=== PATIENT | female | born 1995 | race Caucasian/White ===

== ENCOUNTER 2019-11-18 20:45 | Inpatient (IN) | payer OTHER ==
[2019-11-18 22:48] LABS: BASO % 0.4 % (0-2.0); EOS % 0.5 % (0-4.5); HEMATOCRIT 41.6 % (32.4-45.2); HEMOGLOBIN 14.4 GM/dL (10.7-15.3); LYMPH % 20.9 % (8-40); MCH 32.5 pg (25.7-33.7); MCHC 34.6 g/dl (32.0-36.0); MEAN CELL VOLUME 93.9 fl (80-96); MEAN PLT VOLUME 11.2 fl (7.5-11.1); MONO % 12.9 % (3.8-10.2); NEUT % 65.3 % (42.8-82.8); PLATELET COUNT 184 K/MM3 (134-434); RBC 4.43 M/mm3 (3.60-5.2); RDW 13.4 % (11.6-15.6)
[2019-11-18 23:02] LABS: INR 0.97 (0.83-1.09); PROTHROMBIN TIME (PATIENT) 11.5 SEC (9.7-13.0)
[2019-11-18 23:05] LABS: ACTIVATED PTT 30.2 SECONDS (25.2-36.5)
[2019-11-18] MEDS ORDERED: BUTORPHANOL TARTRATE 1 MG/ML VIAL IVPB ONE (23:11)
[2019-11-18] MEDS ORDERED: PROMETHAZINE HCL 25 MG/1 ML VIAL IVPUSH ONE (23:11)
[2019-11-18 23:15] LABS: BLOOD UREA NITROGEN 11.5 mg/dL (7-18); CALCIUM 9.3 mg/dL (8.5-10.1); CREATININE 0.6 mg/dL (0.55-1.3); POTASSIUM 4.2 mmol/L (3.5-5.1)
[2019-11-18] MEDS ORDERED: ELECTROLYTE-148 SOLN 1,000 ML IV SCH (23:15)
[2019-11-18 23:57] VITALS: BMI 32.3
--- NOTE | 2019-11-18 23:57 | HP ---
Past Medical History - Past Surgical History Hx Myomectomy: No Hx Transabdominal Cerclage: No Home Medications - Allergies Allergies/Adverse Reactions: Allergies Allergy/AdvReac Type Severity Reaction Status Date / Time No Known Allergies Allergy Verified 11/18/19 21:48 - Home Medications Home Medications: Ambulatory Orders Acetaminophen 650 mg PO 1XPACU 11/18/19 Vitamins (Sjr) - 1 tab PO DAILY 11/18/19 Physical Exam - Maternity Vital Signs: Vital Signs Temperature Pulse Rate 122 H 11/18/19 23:00 Respiratory Rate 11/18/19 23:00 Blood Pressure 136/68 11/18/19 23:00 O2 Sat by Pulse Oximetry (%) - Labs Lab Results: CBC, BMP 11/18/19 22:30 11/18/19 22:30
--- NOTE | 2019-11-19 00:14 | HP ---
Past Medical History - Primary Care Physician PCP:: Dolly Myers - Admission Chief Complaint: 24 yrs 39.6 weeks by dates & 39 weeks by sono onset LP since 6.00pM History of Present Illness: pnc at, 2 [facility] wt gain 25 lbs 01/24/19 panel : O Pos Hbsag neg, Rubella immune, Rpr not mentioned, Hiv neg, , Sickle neg, Cf screen neg , gc/ct neg, pap Non 16/18 Hr HPV pos , Hr 16 Hpv neg, Hr 18 Hpv neg 08/15/19 Quqntiferon neg Syphilis Reverse Algarythm neg, 1 hr gt 97 10/19/18 GBS neg gc/ct neg h/h 14.3/42.4, plt 218 Sonograms done by M 06/13/10 sono 16,3 wks Edc assigned 11/25/19 by sono f/u growth sono were done pt states she has h/o tachycardia , for which she was referred to [facility] , HOlra meter was done in last 1 month . 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 Weeks Gestation by Dates: 39.6 ...EDC by Dates: 11/19/19 ...EDC by Sono: 11/25/19 (39 weeks by sono ) Heme/Onc: No: Anemia Infectious Disease: No: AIDS, HIV, Tuberculosis Musculoskeletal: Yes: Other (h/o anxiety) Endocrine: No: Hyperthyroidism, Hypothyroidism - Past Surgical History Past Surgical History: Yes: None Hx Myomectomy: No Hx Transabdominal Cerclage: No - Alcohol/Substance Use Hx Alcohol Use: No History of Substance Use: reports: None Home Medications - Allergies Allergies/Adverse Reactions: Allergies Allergy/AdvReac Type Severity Reaction Status Date / Time No Known Allergies Allergy Verified 11/18/19 21:48 - Home Medications Home Medications: Ambulatory Orders Acetaminophen 650 mg PO 1XPACU 03/06/20 Vitamins (Sjr) - 1 tab PO DAILY 11/18/19 Physical Exam - Maternity Vital Signs: Vital Signs Temperature Pulse Rate 122 H 11/18/19 23:00 Respiratory Rate 20 11/18/19 23:00 Blood Pressure 136/68 11/18/19 23:00 O2 Sat by Pulse Oximetry (%) Selected Entries 11/18/19 21:48 Weight 200 lb Constitutional: Yes: Well Nourished, Obese Eyes: Yes: WNL HENT: Yes: WNL, Normocephalic Neck: Yes: WNL Cardiovascular: Yes: WNL, Regular Rate and Rhythm Lungs: Clear to auscultation Breast(s): Yes: WNL - Abdominal Exam/OB Fundal Height: 38 Number of Fetuses: Single Presentation: Vertex Contractions: Yes Regularity: Irregular (4-5 min) Intensity: Mild/Mod Monitor Mode: External Heart Rate (range): 150 Heart Rate Location: [facility] Category: I Accelerations: Uniform - Vaginal Exam/OB Vaginal Bleediing: No Dilatation (cm): 4-5 Effacement (%): 90 Amniotic Membrane Status: Intact Presentation: Vertex/Position (exam at 10.00 PM 11/18/19) Station: -2 (-2/-1) - Physical Exam Musculoskeletal: Yes: WNL Extremities: Yes: WNL. No: Calf Tenderness Edema: LLE: 1+, RLE: 1+ Integumentary: Yes: Tattoos ...Motor Strength: WNL Psychiatric: Yes: WNL, Alert, Oriented, Other (nervous) - Labs Lab Results: CBC, BMP 11/18/19 22:30 11/18/19 22:30 Problem List - Problems (1) with 39 completed weeks gestation Code(s): Z3A.39 - 39 WEEKS GESTATION OF (2) Labor established Code(s): GBF7633 - Assessment/Plan 24 yrs 39.6/7 weeks gestation in labor . GBS neg Plan : Trial vag delivery Pitocin augmentation stadol + phenrgan & or epidural for labor analgesia
[2019-11-19] MEDS ORDERED: ELECTROLYTE-148 SOLN 1,000 ML IV SCH (00:16)
[2019-11-19] MEDS ORDERED: BUTORPHANOL TARTRATE 1 MG/ML VIAL ONE ×3 (00:43→07:31)
[2019-11-19] MEDS ORDERED: PROMETHAZINE HCL 25 MG/1 ML VIAL ONE ×2 (00:43→07:31)
[2019-11-19] MEDS ORDERED: OXYTOCIN 30 UNITS in 0.9% NS 30 UNIT/500 ML INFUS.BAG IVPB SCH (01:30)
--- NOTE | 2019-11-19 05:58 | PN ---
Progress Note, Labor Vaginal Exam #1 Labor Exam Date: 11/19/19 Labor Exam Time: 05:30 Heart Rate (range): 130-140 Dilatation: 5-6 Effacement (%): 90 Amniotic Membrane Status: Intact Presentation: Vertex/Position Station: -1 Remarks: fhr cat-1 uc irregular , moderate pt anxious 0.45 AM stadol + phenrga iv given 1.30 AM Pitocin Augemtation started Selected Entries 11/19/19 04:00 Temperature 99.0 F Pulse Rate 113 H Blood Pressure 126/66 Laboratory Tests 11/18/19 22:30 PT with INR 11.50 INR 0.97 PTT (Actin FS) 30.2 Vaginal Exam #2 Labor Exam Date: 11/19/19 Labor Exam Time: 07:25 Heart Rate (range): 150 Dilatation: 7 Effacement (%): 90 Amniotic Membrane Status: Ruptured (AROM , clear) Presentation: Vertex/Position Station: 0 Remarks: fhr cat-1 uc q2-3 min pt requests for pain med rx stadol 1mg + phenrgan 25 mg iv stat Vaginal Exam #3 Labor Exam Date: 11/19/19 Labor Exam Time: 09:00 Heart Rate (range): 140 Dilatation: 10 Effacement (%): 100 Amniotic Membrane Status: Ruptured Station: +2 (caput) Remarks: fhr ct-1 uc 2-3 min pt pushing
[2019-11-19] MEDS ORDERED: BUTORPHANOL TARTRATE 1 MG/ML VIAL IVPUSH ONE (07:35)
[2019-11-19] MEDS ORDERED: PROMETHAZINE HCL 25 MG/1 ML VIAL IVPUSH ONE (07:35)
[2019-11-19] MEDS ORDERED: OXYTOCIN 20 UNITS in 0.9% NS 20 UNIT/1,000 ML INFUS.BAG IV ONE (08:50)
[2019-11-19] MEDS ORDERED: LIDOCAINE HCL 1% PRESERVATIVE FREE - 30ML VIAL ONE (08:51)
[2019-11-19] MEDS ORDERED: BENZOCAINE 20% 57 GM BOTTLE TP PRN (10:20)
[2019-11-19] MEDS ORDERED: METHYLERGONOVINE MALEATE 0.2 MG/1 ML AMP IM PRN (10:20)
[2019-11-19] MEDS ORDERED: oxyCODONE HCL 5 MG TABLET PO PRN (10:20)
[2019-11-19] MEDS ORDERED: WITCH HAZEL 50% (TUCKS) 40 PAD/JAR PAD TP PRN (10:20)
[2019-11-19] MEDS ORDERED: BENZOCAINE 28 GM HEMORRHOIDAL OINTMENT TP PRN (10:20)
[2019-11-19] MEDS ORDERED: BISACODYL 10 MG SUPP.RECT RC PRN (10:20)
[2019-11-19] MEDS ORDERED: OXYTOCIN 20 UNITS in 0.9% NS 20 UNIT/1,000 ML INFUS.BAG IV SCH (10:30)
--- NOTE | 2019-11-19 10:40 | PN ---
Delivery - Delivery Vaginal Delivery: No Problems, Spontaneous (vag, delivery OP position , shoulder delivered without difficulty . median episiotomy was given which was sutured in layers . near introitus to the left vaginal laceration bleeding actively was sutured local anesthesia was used . bladder catheterized 250 ml urine removed [place] exam mucosa & sphincter intact . trivascular cord . sponge & needle count accurate) Type of Anesthesia: Local Episiotomy/Laceration: Midline EBL (cc): 350 Delivery, Single - Stages of Labor Date 1st Stage Initiatied: 11/18/19 Time 1st Stage Initiated: 22:00 Date 2nd Stage Initiated: 11/19/19 Time 2nd Stage Initiated: 09:00 Date of Delivery: 11/19/19 Time of Delivery: 09:35 Time Placenta Delivered: 09:40 Placenta: Yes: Spontaneous, Uterine Exploration - Condition of Heel Sander Rubber/Railroad Supervisor Of Engines Present: No Gender: Female Weight: 6 lb 11 oz Position: OP Total Hours ROM (Hrs/Mins): 2H15M - 1 Minute Total Score: 9 5 Minutes Total Score: 9 - [place] Feeding Plan Initial Plan: Elected not to breastfeed exclusively throughout hospitalization Remarks - Remarks Remarks: 24 yrs 39.6 weeks gestation admitted in labor . pnc at , [facility] gbs neg intrapartum 2 doses of stadol & phenrgan for labor analgesia was given intrapartum course uneventful , except periodic maternal tachcardia
[2019-11-19] MEDS: ACETAMINOPHEN 325 MG TABLET (FP) PO PRN (12:21)
[2019-11-19] MEDS: IBUPROFEN 600 MG TABLET (FP) PO PRN (12:22)
[2019-11-19] MEDS: FERROUS SO4 325 MG TABLET (FP) PO SCH (17:46)
[2019-11-20 07:31] LABS: BASO % 0.4 % (0-2.0); HEMATOCRIT 34.9 % (32.4-45.2); HEMOGLOBIN 12.1 GM/dL (10.7-15.3); LYMPH % 21.4 % (8-40); MCH 32.6 pg (25.7-33.7); MCHC 34.6 g/dl (32.0-36.0); MEAN CELL VOLUME 94.1 fl (80-96); MEAN PLT VOLUME 10.2 fl (7.5-11.1); MONO % 10.4 % (3.8-10.2); NEUT % 66.8 % (42.8-82.8); PLATELET COUNT 159 K/MM3 (134-434); RDW 13.8 % (11.6-15.6); WHITE BLOOD COUNT 12.6 K/mm3 (4.0-10.0)
[2019-11-20] MEDS: FERROUS SO4 325 MG TABLET (FP) PO SCH ×2 (08:21→17:09)
--- NOTE | 2019-11-20 09:20 | PN ---
Post Progress Note - Subjective Subjective: no c/o headache cramps bleeding less Post Day: 1 Type of Delivery: Vital Signs: Vital Signs Temperature 97.4 F L 11/20/19 03:00 Pulse Rate 98 H 11/20/19 03:00 Respiratory Rate 20 11/20/19 03:00 Blood Pressure 125/96 11/20/19 03:00 O2 Sat by Pulse Oximetry (%) Breast Exam: Yes: Soft. No: Engorged Uterus: Yes: Fundus Firm, Fundus above umbilicus, Fundus below umbilicus Lochia: Yes: Rubra Lochia, amount: Moderate Extremities: Yes: Calves non-tender Perineum: Yes: Intact (less ), Episiotomy Activity: Ambulating - Labs Labs: CBC WBC 12.6 K/mm3 (4.0-10.0) H 11/20/19 07:02 RBC 3.70 M/mm3 (3.60-5.2) 11/20/19 07:02 Hgb 12.1 GM/dL (10.7-15.3) 11/20/19 07:02 Hct 34.9 % (32.4-45.2) D 11/20/19 07:02 MCV 94.1 fl (80-96) 11/20/19 07:02 MCH 32.6 pg (25.7-33.7) 11/20/19 07:02 MCHC 34.6 g/dl (32.0-36.0) 11/20/19 07:02 RDW 13.8 % (11.6-15.6) 11/20/19 07:02 Plt Count 159 K/MM3 (134-434) 11/20/19 07:02 MPV 10.2 fl (7.5-11.1) 11/20/19 07:02 Absolute Neuts (auto) 8.4 K/mm3 (1.5-8.0) H 11/20/19 07:02 Neutrophils % 66.8 % (42.8-82.8) 11/20/19 07:02 Lymphocytes % 21.4 % (8-40) 11/20/19 07:02 Monocytes % 10.4 % (3.8-10.2) H 11/20/19 07:02 Eosinophils % 1.0 % (0-4.5) D 11/20/19 07:02 Basophils % 0.4 % (0-2.0) 11/20/19 07:02 Nucleated RBC % 0 % (0-0) 11/20/19 07:02 Problem List - Problems (1) with 39 completed weeks gestation Code(s): Z3A.39 - 39 WEEKS GESTATION OF (2) Labor established Code(s): CVB5497 - Assessment/Plan mildly elevated BP, does not need meds pt does not remember program project manager name . she states she had holtamonitor in Sep . she will follow with her program project manager ct pp care discharge tomorrow.
[2019-11-20] MEDS: PRENATAL VITAMINS W/ FOLIC ACID TABLET (FP) PO SCH (09:41)
[2019-11-20] MEDS: IBUPROFEN 600 MG TABLET (FP) PO PRN (14:42)
[2019-11-20] MEDS: ACETAMINOPHEN 325 MG TABLET (FP) PO PRN (14:43)
[2019-11-20] MEDS ORDERED: SENNOSIDES/DOCUSATE COMBO (SENNA PLUS) TABLET (UD) PO PRN (22:00)
[2019-11-21 05:07] VITALS: PULSE 99
--- NOTE | 2019-11-21 09:42 | DS ---
Physical Exam-ENVIRONMENTAL PROTECTION SPECIALIST Vital Signs: Vital Signs Temperature 97.7 F 11/21/19 05:06 Pulse Rate 99 H 11/21/19 05:06 Respiratory Rate 20 11/21/19 05:06 Blood Pressure 127/85 11/21/19 05:06 O2 Sat by Pulse Oximetry (%) Constitutional: Yes: Well Nourished, Obese, Other (no c/oheadache) Eyes: Yes: WNL HENT: Yes: WNL Neck: Yes: WNL Cardiovascular: Yes: Tachycardia (h/o tachycardia . h/o cardilolgy f/u in Sep , holta meter done . mild elevation of BP mainly diastolic <90 >80 . pt alerted), Other Respiratory: Yes: WNL Gastrointestinal: Yes: WNL ...Rectal Exam: Yes: WNL Renal/: Yes: WNL ....Post : Yes: Uterus firm, Uterus non-tender, Moderate lochia rubra (perineal epi wound healing perineal sorenes not bothersome) Breast(s): Yes: WNL (breast & bottle feeding) Musculoskeletal: Yes: WNL Extremities: Yes: WNL. No: Calf Tenderness Edema: LLE: 1+, RLE: 1+ Integumentary: Yes: Tattoos Neurological: Yes: WNL ...Motor Strength: WNL Psychiatric: Yes: WNL, Alert, Oriented Labs: CBC, BMP 11/20/19 07:02 11/18/19 22:30 Delivery - Delivery Vaginal Delivery: No Problems, Spontaneous (vag, delivery OP position , shoulder delivered without difficulty . median episiotomy was given which was sutured in layers . near introitus to the left vaginal laceration bleeding actively was sutured local anesthesia was used . bladder catheterized 250 ml urine removed [place] exam mucosa & sphincter intact . trivascular cord . sponge & needle count accurate) Type of Anesthesia: Local Episiotomy/Laceration: Midline EBL (cc): 350 Delivery, Single - Stages of Labor Date 1st Stage Initiatied: 11/18/19 Time 1st Stage Initiated: 22:00 Date 2nd Stage Initiated: 11/19/19 Time 2nd Stage Initiated: 09:00 Date of Delivery: 11/19/19 Time of Delivery: 09:35 Time Placenta Delivered: 09:40 Placenta: Yes: Spontaneous, Uterine Exploration - Condition of Junior Analyst/Associate Property Manager Present: No Infant Gender: Female Weight: 6 lb 11 oz Position: OP Total Hours ROM (Hrs/Mins): 2H15M - 1 Minute Total Score: 9 5 Minutes Total Score: 9 - Feeding Plan Initial Plan: Elected not to breastfeed exclusively throughout hospitalization Remarks - Remarks Remarks: 24 yrs 39.6 weeks gestation admitted in labor . pnc at , [facility]] gbs neg intrapartum 2 doses of stadol & phenrgan for labor analgesia was given intrapartum course uneventful , except periodic maternal tachcardia . pp course uneventful . 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 Drink at least eight (8) glasses of water daily in addition to other fluids. _ct Regular diet MEDICATIONS: Continue vitamins and iron as previously directed. Motrin and Tylenol may be taken for minor discomfort. ACTIVITY: Mild to moderate exercise may be started in two (2) weeks. Take frequent rest periods. Resume normal activity after six (6) week check up. WOUND CARE OF OPERATIVE SITE: Continue use of perineal bottle until vaginal discharge stops. Keep area clean. Shower daily. Keep abdominal wound dry. Report any drainage or redness to physician. Tub baths, tampons and douches are not permitted for 6 weeks. _ct Breast feeding & or Bottle feeding BREAST CARE: (For those that are not ): If engorgement occurs: Wear tight fitting bra. Take Tylenol or Motrin for pain. Apply cold packs (ice in bags to each breast ) FAMILY PLANNING: There are many control alternatives to pursue and they should be discussed at your first office visit. You may resume sexual activity after your six (6) week check up. (Remember, is not a contraceptive) NEXT PHYSICIAN APPOINTMENT: Be certain to call for a two (2) week appointment, unless otherwise directed. Call Clinic or got to Emergency Dept if you have any of the following: Heavy vaginal bleeding Painful urination Leg pain Unusual odor noted to vaginal bleeding High fever Red streaking noted on breast Referrals: Dolly Myers MD [Staff Physician] - Disposition: HOME - Home Medications Comprehensive Discharge Medication List: Ambulatory Orders Acetaminophen 650 mg PO 1XPACU 11/18/19 Vitamins (Sjr) - 1 tab PO DAILY 11/18/19 Acetaminophen [Tylenol .Regular Strength -] 650 mg PO Q3H PRN tablet 11/20/19 Benzocaine [Americaine 20% [place] -] 1 spray TP PRN PRN bottle 11/20/19 Ibuprofen [Motrin -] 200 mg PO Q4H PRN tablet 11/20/19 Vitamins (Sjr) - 1 tab PO DAILY tablet 11/20/19 Witch Gunjan 50% (Tucks) [Tucks Pads -] 1 pad TP PRN PRN pad 11/20/19
[2019-11-21] MEDS: FERROUS SO4 325 MG TABLET (FP) PO SCH (10:01)
[2019-11-21] MEDS: PRENATAL VITAMINS W/ FOLIC ACID TABLET (FP) PO SCH (10:01)
[2019-11-21 10:24] VITALS: BP 144/80; TEMP 98
== END 2019-11-21 12:45 | disposition home or self-care (01) | DRG 861 ==
LOC: JDEL 20:45 → JLDR 22:10 → J3W 11-19 11:28
PROVIDERS: ADMIT Obstetrics & Gynecology; ATTEND Obstetrics & Gynecology
PROC: 10E0XZZ Delivery of Products of Conception, External Approach (ICD-10-PCS; principal; 2019-11-19)
PROC: 0W8NXZZ Division of Female Perineum, External Approach (ICD-10-PCS; 2019-11-19)
DX: Z3A.39 39 weeks gestation of pregnancy (principal); O80 Encounter for full-term uncomplicated delivery; Z37.0 Single live birth
CPT/HCPCS: 36415; 59409; 80048; 85025; 85610; 85730; 86593; 86850; 86900; 86901

== ENCOUNTER 2021-05-01 07:33 | Emergency (ER) | payer OTHER ==
[2021-05-01 07:36] VITALS: BP 121/80; PULSE 83; TEMP 97; BMI 25.3
[2021-05-01] MEDS ORDERED: ONDANSETRON *ODT* 4 MG TABLET SL ONE (08:25)
[2021-05-01] MEDS ORDERED: MAG HYDROX/AL HYDROX/SIMETH -MYLANTA- ORAL SUSPENSION PO ONE (08:26)
[2021-05-01] MEDS ORDERED: FAMOTIDINE 20 MG TABLET PO ONE (08:26)
[2021-05-01] MEDS ORDERED: MAGNESIUM HYDROX 2400MG/30ML ORAL SUSPENSION 30 ML CUP ONE (08:28)
[2021-05-01] MEDS ORDERED: FAMOTIDINE 20 MG TABLET ONE (08:29)
[2021-05-01] MEDS ORDERED: ONDANSETRON *ODT* 4 MG TABLET ONE (08:29)
[2021-05-01 09:01] LABS: BASO % 0.5 % (0-2.0); EOS % 0.4 % (0-4.5); HEMATOCRIT 41.5 % (32.4-45.2); HEMOGLOBIN 14.6 GM/dL (10.7-15.3); LYMPH % 19.2 % (8-40); MCHC 35.2 g/dl (32.0-36.0); MEAN CELL VOLUME 88.3 fl (80-96); MEAN PLT VOLUME 9.1 fl (7.5-11.1); MONO % 6.6 % (3.8-10.2); NEUT % 73.3 % (42.8-82.8); PLATELET COUNT 224 10^3/uL (134-434); RDW 12.7 % (11.6-15.6); WHITE BLOOD COUNT 11.6 K/mm3 (4.0-10.0)
[2021-05-01 09:30] LABS: CALCIUM 9.5 mg/dL (8.5-10.1)
[2021-05-01 09:31] LABS: ALBUMIN 4.4 g/dl (3.4-5.0); BLOOD UREA NITROGEN 10.8 mg/dL (7-18)
[2021-05-01 09:34] LABS: CREATININE 0.8 mg/dL (0.55-1.3)
[2021-05-01 09:35] LABS: BILIRUBIN,TOTAL 0.5 mg/dL (0.2-1); TOT PROT 8.6 g/dl (6.4-8.2)
== END 2021-05-01 16:29 | disposition home or self-care (01) ==
LOC: JER 07:33
DX: R10.13 Epigastric pain (principal)
CPT/HCPCS: 36415; 76705-TC; 80053; 83690; 85025; 99284-25; Q0162

== ENCOUNTER 2021-07-04 12:39 | Day surgery (SDC) | payer OTHER ==
[2021-07-03 13:39] VITALS: BMI 23.1
[~2021-07-04 12:39] MED LIST: BUPIVACAINE HCL/PF 0.5% (5MG/ML) 10 ML VIAL IJ ONE
[2021-07-04] MEDS ORDERED: BUPIVACAINE HCL/PF 0.5% (5MG/ML) 10 ML VIAL ONE (12:49)
[2021-07-04] MEDS ORDERED: ONDANSETRON 4 MG/2 ML VIAL IVPUSH PRN (13:02)
[2021-07-04] MEDS ORDERED: oxyCODONE HCL 5 MG TABLET PO PRN (13:02)
[2021-07-04] MEDS ORDERED: LACTATED RINGERS SOLUTION 1,000 ML IV SCH (13:15)
[2021-07-04] MEDS ORDERED: ceFAZolin SODIUM 1 GM VIAL IVPB ONE (13:15)
[2021-07-04] MEDS ORDERED: BUPIVACAINE HCL/PF 0.5% (5MG/ML) 10 ML VIAL IJ ONE (14:08)
[2021-07-04] MEDS ORDERED: oxyCODONE HCL 5 MG TABLET ONE (16:47)
[2021-07-04 18:39] VITALS: BP 122/83; PULSE 82; TEMP 97.2
== END 2021-07-04 18:30 | disposition home or self-care (01) ==
LOC: JASU-SURG 12:39
PROVIDERS: ATTEND Surgery
PROC: 0FT44ZZ Resection of Gallbladder, Percutaneous Endoscopic Approach (ICD-10-PCS; principal; 2021-07-04 12:30)
DX: K80.10 Calculus of gallbladder with chronic cholecystitis without obstruction (principal)
CPT/HCPCS: 81025; 88304-TC; 94760

== ENCOUNTER 2021-08-08 08:09 | Emergency (ER) | payer OTHER ==
[2021-08-08 08:30] VITALS: BP 110/74; PULSE 97; TEMP 98; BMI 25.7
[2021-08-08] MEDS ORDERED: LACTATED RINGERS SOLUTION 1000 ML INFUS.BAG IV ONE (09:01)
[2021-08-08] MEDS ORDERED: ONDANSETRON 4 MG/2 ML VIAL IVPUSH ONE (09:03)
[2021-08-08] MEDS ORDERED: ONDANSETRON 4 MG/2 ML VIAL ONE (09:23)
[2021-08-08 10:21] LABS: BASO % 0.6 % (0-2.0); EOS % 0.5 % (0-4.5); HEMATOCRIT 43.1 % (32.4-45.2); HEMOGLOBIN 15.2 GM/dL (10.7-15.3); LYMPH % 19.9 % (8-40); MCH 30.9 pg (25.7-33.7); MCHC 35.3 g/dl (32.0-36.0); MEAN CELL VOLUME 87.4 fl (80-96); MEAN PLT VOLUME 9.9 fl (7.5-11.1); MONO % 9.9 % (3.8-10.2); NEUT % 69.1 % (42.8-82.8); PLATELET COUNT 219 10^3/uL (134-434); RBC 4.93 M/mm3 (3.60-5.2); RDW 12.1 % (11.6-15.6); WHITE BLOOD COUNT 5.4 K/mm3 (4.0-10.0)
[2021-08-08 10:46] LABS: BILIRUBIN,TOTAL 0.7 mg/dL (0.2-1); CALCIUM 9.5 mg/dL (8.5-10.1); CREATININE 0.7 mg/dL (0.55-1.3); TOT PROT 8.7 g/dl (6.4-8.2)
[2021-08-08 11:13] LABS: MAGNESIUM 2.3 mg/dL (1.8-2.4)
== END 2021-08-08 11:59 | disposition home or self-care (01) ==
LOC: JER 08:09
PROC: 3E033GC Introduction of Other Therapeutic Substance into Peripheral Vein, Percutaneous Approach (ICD-10-PCS; principal; 2021-08-08)
DX: R11.2 Nausea with vomiting, unspecified (principal); R19.7 Diarrhea, unspecified
CPT/HCPCS: 36415; 80053; 83735; 84703; 85025; 99284-25; C9803; U0003; U0005

== ENCOUNTER 2021-09-17 07:45 | Emergency (ER) | payer OTHER ==
[2021-09-17 07:55] VITALS: BP 117/76; PULSE 77; TEMP 98; BMI 23.3
[2021-09-18 17:09] LABS: SARS-CoV-2 NAA Not Detected (Not Detected)
== END 2021-09-17 08:20 | disposition home or self-care (01) ==
LOC: JER 07:45
DX: J06.9 Acute upper respiratory infection, unspecified (principal)
CPT/HCPCS: 87804; 87807; 99283-25; C9803; U0003; U0005

== ENCOUNTER 2021-09-26 18:27 | Emergency (ER) | payer OTHER ==
[2021-09-26 18:42] VITALS: BP 116/64; PULSE 87; TEMP 98.1; BMI 23.3
== END 2021-09-26 21:31 | disposition home or self-care (01) ==
LOC: JERFT 18:27
DX: M25.512 Pain in left shoulder (principal)
CPT/HCPCS: 99281-25

== ENCOUNTER 2021-11-06 10:56 | Emergency (ER) | payer OTHER ==
[2021-11-06 11:16] VITALS: BP 114/79; PULSE 96; TEMP 98.5; BMI 22.4
== END 2021-11-06 12:09 | disposition home or self-care (01) ==
LOC: JER 10:56 → JERFT 10:56
DX: M54.6 Pain in thoracic spine (principal); N64.4 Mastodynia; F41.9 Anxiety disorder, unspecified
CPT/HCPCS: 99281-25

== ENCOUNTER 2021-12-23 03:17 | Emergency (ER) | payer OTHER ==
[2021-12-23 03:39] VITALS: BP 116/72; PULSE 82; TEMP 97.7; BMI 23.1
== END 2021-12-23 04:06 | disposition home or self-care (01) ==
LOC: JER 03:17
DX: R00.2 Palpitations (principal)
CPT/HCPCS: 93005; 93010; 99283-25

== ENCOUNTER 2022-09-16 00:04 | Emergency (ER) | payer OTHER ==
[2022-09-16 00:50] VITALS: BMI 24.2
[2022-09-16] MEDS ORDERED: ACETAMINOPHEN 500 MG TABLET (FP) PO ONE (03:52)
[2022-09-16] MEDS ORDERED: ACETAMINOPHEN 325 MG TABLET (FP) ONE (04:14)
[2022-09-16 04:34] LABS: THROAT:GRP A STREP NOT DETECTED (NOTDETECTED)
[2022-09-16 04:40] VITALS: BP 116/75; PULSE 95; RESP 18; TEMP 99.1
== END 2022-09-16 05:05 | disposition home or self-care (01) ==
LOC: JER 00:04
DX: J03.90 Acute tonsillitis, unspecified (principal); J02.9 Acute pharyngitis, unspecified
CPT/HCPCS: 0241U-QW; 87070; 87651; 99283-25

== ENCOUNTER 2022-10-03 19:19 | Emergency (ER) | payer OTHER ==
[2022-10-03 19:37] VITALS: BP 126/67; PULSE 88; RESP 18; TEMP 98.2; BMI 24.5
[2022-10-03] MEDS ORDERED: KETOROLAC TROMETHAMINE 30 MG/1 ML VIAL IM ONE (20:10)
[2022-10-03] MEDS ORDERED: KETOROLAC TROMETHAMINE 30 MG/1 ML VIAL ONE (20:21)
== END 2022-10-03 20:49 | disposition home or self-care (01) ==
LOC: JER 19:19
PROC: 3E023GC Introduction of Other Therapeutic Substance into Muscle, Percutaneous Approach (ICD-10-PCS; principal; 2022-10-03)
DX: R07.0 Pain in throat (principal)
CPT/HCPCS: 0241U-QW; 87651; 99284-25

== ENCOUNTER 2023-02-10 10:37 | Emergency (ER) | payer OTHER ==
[2023-02-10 10:49] VITALS: BMI 54.8
[2023-02-10] MEDS ORDERED: ACETAMINOPHEN 325 MG TABLET (FP) PO ONE ×2 (11:14→12:50)
[2023-02-10] MEDS ORDERED: ACETAMINOPHEN 325 MG TABLET (FP) ONE ×2 (11:16→12:56)
[2023-02-10 11:28] LABS: THROAT:GRP A STREP DETECTED (NOTDETECTED)
[2023-02-10 12:50] VITALS: RESP 20
[2023-02-10] MEDS ORDERED: SODIUM CHLORIDE 1,000 ML IV ONE (12:50)
[2023-02-10 13:28] LABS: BASO % 0.3 % (0-2.0); HEMOGLOBIN 13.6 GM/dL (10.7-15.3); LYMPH % 3.8 % (8-40); MCH 30.8 pg (25.7-33.7); MCHC 34.8 g/dl (32.0-36.0); MEAN CELL VOLUME 88.4 fl (80-96); MEAN PLT VOLUME 9.7 fl (7.5-11.1); MONO % 5.5 % (3.8-10.2); NEUT % 90.4 % (42.8-82.8); PLATELET COUNT 228 10^3/uL (134-434); RBC 4.41 M/mm3 (3.60-5.2); RDW 12.7 % (11.6-15.6); WHITE BLOOD COUNT 15.5 K/mm3 (4.0-10.0)
[2023-02-10 13:45] LABS: POTASSIUM 4.1 mmol/L (3.5-5.1)
[2023-02-10 13:47] LABS: ALBUMIN 4.2 g/dl (3.4-5.0); CALCIUM 9.7 mg/dL (8.5-10.1)
[2023-02-10 13:48] LABS: BLOOD UREA NITROGEN 10.9 mg/dL (7-18)
[2023-02-10 13:50] LABS: CREATININE 0.7 mg/dL (0.55-1.3)
[2023-02-10 13:52] LABS: BILIRUBIN,TOTAL 0.7 mg/dL (0.2-1); TOT PROT 8.3 g/dl (6.4-8.2)
[2023-02-10 14:49] VITALS: PULSE 107; TEMP 99.2
[2023-02-10 14:52] VITALS: BP 117/67
[2023-02-10] MEDS ORDERED: PENICILLIN G BENZATHINE 1,200,000 UNIT/2 ML PFS IM ONE ×2 (15:07→15:17)
== END 2023-02-10 15:26 | disposition home or self-care (01) ==
LOC: JERFT 10:37 → JER 10:37 → JERFT 15:26
PROC: 3E0337Z Introduction of Electrolytic and Water Balance Substance into Peripheral Vein, Percutaneous Approach (ICD-10-PCS; principal; 2023-02-10)
PROC: 3E02329 Introduction of Other Anti-infective into Muscle, Percutaneous Approach (ICD-10-PCS; 2023-02-10)
DX: R07.0 Pain in throat (principal); R50.9 Fever, unspecified; M79.10 Myalgia, unspecified site; J02.0 Streptococcal pharyngitis; Z20.822 Contact with and (suspected) exposure to COVID-19
CPT/HCPCS: 0241U-QW; 36415; 80053; 85025; 87651; 93005; 93010; 99284-25

== ENCOUNTER 2023-08-15 10:32 | Emergency (ER) | payer OTHER ==
[2023-08-15 10:48] VITALS: BMI 25.8
[2023-08-15] MEDS ORDERED: ONDANSETRON 4 MG/2 ML VIAL IVPUSH ONE (11:59)
[2023-08-15] MEDS ORDERED: SODIUM CHLORIDE 0.9% 500 ML INFUS.BAG IV ONE (11:59)
[2023-08-15] MEDS ORDERED: ONDANSETRON 4 MG/2 ML VIAL ONE (12:16)
[2023-08-15 12:23] LABS: BASO % 0.7 % (0-2.0); EOS % 1.2 % (0-4.5); HEMATOCRIT 39.9 % (32.4-45.2); HEMOGLOBIN 13.5 GM/dL (10.7-15.3); MCH 29.8 pg (25.7-33.7); MCHC 33.7 g/dl (32.0-36.0); MEAN CELL VOLUME 88.3 fl (80-96); MEAN PLT VOLUME 8.9 fl (7.5-11.1); MONO % 9.3 % (3.8-10.2); NEUT % 65.8 % (42.8-82.8); PLATELET COUNT 243 10^3/uL (134-434); RBC 4.52 M/mm3 (3.60-5.2); WHITE BLOOD COUNT 9.5 K/mm3 (4.0-10.0)
[2023-08-15 12:28] LABS: EPI CELLS >36 /uL (0-25.1); HYALINE CASTS 1 /uL (0-3.1); URINE APPEARANCE TURBID; URINE BACTERIA 7970 /uL (0-1359); URINE BILIRUBIN NEGATIVE (NEGATIVE); URINE COLOR YELLOW; URINE GLUCOSE (UA) NEGATIVE (NEGATIVE); URINE KETONE NEGATIVE (NEGATIVE); URINE LEUK ESTERASE 3+ (NEGATIVE); URINE NITRITE NEGATIVE (NEGATIVE); URINE PROTEIN TRACE (NEGATIVE); URINE RBC 14 /uL (0-23.9); URINE UROBILINOGEN 0.2 mg/dL (0.2-1.0); URINE WBC 126 /uL (0-25.8)
[2023-08-15 12:47] LABS: POTASSIUM 4.3 mmol/L (3.5-5.1)
[2023-08-15 12:49] LABS: CALCIUM 9.7 mg/dL (8.5-10.1)
[2023-08-15 12:50] LABS: ALBUMIN 3.8 g/dl (3.4-5.0); BLOOD UREA NITROGEN 8.6 mg/dL (7-18)
[2023-08-15 12:53] LABS: CREATININE 0.7 mg/dL (0.55-1.3)
[2023-08-15 12:55] LABS: BILIRUBIN,TOTAL 0.6 mg/dL (0.2-1); TOT PROT 7.9 g/dl (6.4-8.2)
[2023-08-15] MEDS ORDERED: NITROFURANTOIN MONOHYD/M-CRYST 100 MG CAPSULE PO ONE (13:24)
[2023-08-15] MEDS ORDERED: NITROFURANTOIN MACROCRYSTAL 50 MG CAPSULE (FP) ONE (13:29)
[2023-08-15 14:15] VITALS: BP 103/52; PULSE 76; RESP 18; TEMP 98.7
== END 2023-08-15 14:14 | disposition home or self-care (01) ==
LOC: JER 10:32
PROC: 3E033GC Introduction of Other Therapeutic Substance into Peripheral Vein, Percutaneous Approach (ICD-10-PCS; principal; 2023-08-15)
DX: O23.41 Unspecified infection of urinary tract in pregnancy, first trimester (principal); O21.9 Vomiting of pregnancy, unspecified; Z3A.01 Less than 8 weeks gestation of pregnancy
CPT/HCPCS: 36415; 80053; 81003; 83690; 84702; 85025; 87086; 99284-25

== ENCOUNTER 2024-06-20 20:53 | Emergency (ER) | payer OTHER ==
[2024-06-20 20:57] VITALS: BP 128/79; PULSE 88; RESP 16; TEMP 99.3; BMI 26.1
[2024-06-20] MEDS ORDERED: AMOXICILLIN 250 MG CAPSULE ONE (21:26)
[2024-06-20] MEDS ORDERED: IBUPROFEN 600 MG TABLET (FP) PO ONE (21:27)
[2024-06-20] MEDS: AMOXICILLIN 250 MG CAPSULE PO ONE (21:34)
[2024-06-20] MEDS: IBUPROFEN 600 MG TABLET (FP) PO ONE (21:34)
[2024-06-20 22:11] LABS: THROAT:GRP A STREP NOT DETECTED (NOTDETECTED)
[2024-06-20 23:09] LABS: HIV INTERPRETATION NEGATIVE (NEGATIVE)
== END 2024-06-20 22:00 | disposition home or self-care (01) ==
LOC: JERFT 20:53
DX: J02.0 Streptococcal pharyngitis (principal); R50.9 Fever, unspecified; R09.81 Nasal congestion; R05.9 Cough, unspecified; Z20.822 Contact with and (suspected) exposure to COVID-19
CPT/HCPCS: 0241U-QW; 36415; 86803; 87389; 87651; 99283-25

== ENCOUNTER 2024-11-25 09:18 | Emergency (ER) | payer OTHER ==
[2024-11-25 09:39] VITALS: BP 128/85; PULSE 122; RESP 18; TEMP 99.4; BMI 25.4
[2024-11-25] MEDS ORDERED: guaiFENesin/D-METHORPHAN HB 10 ML UNIT-DOSE CUPS ONE (10:01)
[2024-11-25] MEDS ORDERED: IBUPROFEN 600 MG TABLET (FP) PO ONE (10:02)
[2024-11-25] MEDS: IBUPROFEN 600 MG TABLET (FP) PO ONE (10:09)
[2024-11-25] MEDS: guaiFENesin/D-METHORPHAN HB 10 ML UNIT-DOSE CUPS PO ONE (10:09)
[2024-11-25 12:52] LABS: HIV INTERPRETATION NEGATIVE (NEGATIVE)
== END 2024-11-25 11:55 | disposition home or self-care (01) ==
LOC: JERFT 09:18
DX: J10.1 Influenza due to other identified influenza virus with other respiratory manifestations (principal); R05.9 Cough, unspecified; M79.10 Myalgia, unspecified site; R09.81 Nasal congestion; R51.9 Headache, unspecified; R68.83 Chills (without fever); R00.0 Tachycardia, unspecified
CPT/HCPCS: 0241U-QW; 36415; 86803; 87389; 99283-25